=== PATIENT | female | born 1990 | race Caucasian/White ===

== ENCOUNTER 2020-07-23 09:29 | Inpatient (IN) | payer BC ==
[2020-07-23] VITALS (8 sets, daily range): BP systolic 111–133; BP diastolic 58–78
[~2020-07-23] VITALS: Ht 175.3 cm; Wt 91.2 kg
[2020-07-23] MEDS ORDERED: LR 1,000 ML IV SCH (10:11)
[2020-07-23] MEDS ORDERED: LACTATED RINGER'S 1000 ML IV STA (10:11)
[2020-07-23 10:24] LABS: HEMOGLOBIN 12.5 g/dl (12.0-15.5); MEAN CORPUSCULAR HEMOGLOBIN 26.4 pg (27.0-33.0); MEAN CORPUSCULAR HGB CONC 32.1 g/dl (32.0-36.5); MEAN CORPUSCULAR VOLUME 82.5 fl (80.0-96.0); PLATELET COUNT, AUTOMATED 220 10^3/uL (150-450); RED BLOOD COUNT 4.73 10^6/uL (4.00-5.40); WHITE BLOOD COUNT 12.9 10^3/uL (4.0-10.0)
[2020-07-23] MEDS ORDERED: OXYTOCIN 30 UNITS IN 0.9% NaCl 500ML IV BAG (J2590) As Ordered ONE (10:45)
[2020-07-23] MEDS ORDERED: ACETAMINOPHEN 500 MG TAB PO PRN (13:00)
[2020-07-23] MEDS ORDERED: METHYLERGONOVINE MALEATE 0.2 MG TAB PO PRN (13:00)
[2020-07-23] MEDS ORDERED: RHOGAM 300 MCG (1500 IU) INJ (J2790) IM SCH (13:00)
[2020-07-23] MEDS ORDERED: DOCUSATE SODIUM 100MG CAPSULE PO PRN (13:00)
[2020-07-23] MEDS ORDERED: MEASLES,MUMPS,RUBELLA VACCINE INJ (MMR-II) (90707) SQ SCH (13:00)
[2020-07-23] MEDS ORDERED: ANUSOL HC CREAM 30GM TOP PRN (13:00)
[2020-07-23] MEDS ORDERED: MOM 30ML SUSPENSION UDC PO PRN (13:00)
[2020-07-23] MEDS ORDERED: OXYTOCIN DRIP 30 UNITS in IV 1 EA IV ONE (13:05)
[2020-07-23] MEDS ORDERED: IBUPROFEN 800 MG TAB As Ordered ONE (13:21)
[2020-07-23] MEDS: IBUPROFEN 800 MG TAB PO PRN ×2 (13:30→23:41)
[2020-07-23] MEDS ORDERED: IRON27TA2 PO (14:18)
[2020-07-23] MEDS ORDERED: METF500T13 PO (14:18)
[2020-07-23] MEDS ORDERED: PRENTAB9 PO (14:18)
--- NOTE | 2020-07-23 15:00 | HPEPDOC ---
Obstetrical History & Physical General Date of Admission Jul 23, 2020 at 10:00 History of Present Illness Sol is a 30yo with SIUP at 38w0d by 9wk u/s presenting with painful regular ctx. She was receiving care at [facility], but plan was to deliver in [place] because she has a history of prior section and her regular OB does not offer services. She started erin early this morning around 5am and did not think she would make it to [place] before delivering, so came here. No LOF, good movement, no vaginal bleeding. Records received and able to review. Chief Complaint: Contractions, term Information Provided By: Patient Care Care: Good Care Dating Final EDC: Aug 06, 2020 Final EDC by: 1st trimester (US) Antepartum Course Diagnos(e)s History of prior section in 2016 for breech presentation with successful after in 2017, A2GDM on metformin 500mg BID with sugars well controlled, anemia taking iron, patient is CF carrier but is negative Past Medical History Past Obstetrical History : Past Obstetrical History: Multigravida (07/26/2016 PLTCS for breech [id number] at 40wk M, 02/02/2018 [id number] at 39wk at [facility]) EVENT SET UP SPECIALIST History: Spontaneous Past Medical History Medical History benign Surgical History: section, Dilatation and Curettage Family History Significant Family History: No pertinent family hx Social History Marital Status: Family situation: Spouse/partner home Psychosocial History: No pertinent psych hx * Smoker: non-smoker Alcohol: Denies Drugs: denies Imunizations Tdap status: current Influenza Status: current Allergies Coded Allergies: No Known Allergies (Unverified , 07/23/20) Medications Scheduled Ferrous Gluconate (Iron) 236 Mg Tablet, 1 TAB PO DAILY Metformin HCl (Metformin HCl) 500 Mg Tablet, 500 MG PO BID No.137/Iron/Folic Acd ( Vitamin Tablet) 1 Each Tablet, 1 TAB PO DAILY Physical Examination Physical Examination GENERAL: Alert and oriented times three. ABDOMEN: Gravid and non-tender to touch. FETUS: Is vertex (VTX) by sterile vaginal examination (SVE) EXTREMITIES: No edema BLE Vital Signs/I&O Vital Signs Date Time Temp Pulse Resp B/P (MAP) Pulse Ox O2 Delivery O2 Flow Rate FiO2 07/23/20 14:42 99.0 84 12 121/58 (79) 97 Room Air Laboratory Data 24H LABS Laboratory Tests 2 07/23/20 10:19: Nucleated Red Blood Cells % (auto) 0.0 07/23/20 14:22: Serology Scanned Report Hepatitis B Testing CBC/BMP Laboratory Tests 07/23/20 10:19 Pertinent Laboratoy Data Blood Type: AB+ RBC Antibody Screen: Negative HIV: Negative Hepatitis B: Negative Rapid Plasma Reagin: Nonreactive Rubella: Immune Chlamydia/Gonorrhea: Negative Group B Streptococcus: Negative Glucose Tolerance Test: 161 (83/189/165/103) Anatomy Ultrasound Ultrasound Date: Mar 28, 2020 Normal Anatomy: Yes Other Ultrasounds 06/23 vertex, anterior placenta, 45%ile. 07/14 vertex, 22%ile, MICHAEL 14.6cm Steroid Therapy Steroid Therapy: No Vaginal Examination Dilation: 8 cm Effacement: 70% Station: -2 Cervical Consistency: Soft Cervical Position: Anterior Presentation: Cephalic presentation Assessment Heart Rate (FHR): 140 Variability: Moderate Accelerations: Positive Decelerations: Late (occasional, not persistent) Tocometer Contractions: Yes Frequency: regular, every 2-5 min. Duration: greater than 60 seconds Strength: palpated as strong Assessment/Plan Assessment Sol is a 30yo with SIUP at 38w0d by 9wk in active labor with SCE 8/75/-2 and bulging bag with hx of prior section and a prior successful desiring another TOLAC. Cat II FHRT for occasional late decels but mod saray and +accels. Vitals wnl and benign exam. PMhx/ course significant for: History of prior section in 2017 for breech presentation with successful after in 2018, A2GDM on metformin 500mg BID with sugars well controlled, anemia taking iron, patient is CF carrier but is negative Plan Admit and orient. [employer] Guard and consent. Diet: clear liquids Group B Streptococcus (GBS) negative Labs and intravenous (IV) per unit protocol. Lactated Ringers (LR): Bolus 800 mL, then at 125 mL/hr. Anticipate normal spontaneous delivery (), patient strongly desires TOLAC Cait Simon MD Jul 23, 2020 15:00
--- NOTE | 2020-07-23 15:10 | DNPDOC ---
[facility] Delivery Note Delivery Note DATE OF DELIVERY: 07/23/20 PREDELIVERY DIAGNOSIS: 38w0d weeks' gestation and labor. POST DELIVERY DIAGNOSIS: Delivered. PROCEDURE: LOSS PREVENTION ANALYST: Dr. Cait Simon MD ANESTHESIA: 1% lidocaine for repair ESTIMATED BLOOD LOSS: 200 mL. FINDINGS: 6 pound 5 ounce (2870g) male infant, Score 9/9 DELIVERY SUMMARY: Sol is a 30yo [id number] s/p uncomplicated at 1047 on 07/23/20 when she presented in active labor at 38w0d. Plan was for delivery at [place] as her OB provider does not offer services, but she felt labor was too active to make it to [place]. She was 8/75/-2 with bulging bag on arrival. She quickly progressed to C/C/0, at which point I performed AROM with copious clear fluid noted. With a few sets of pushes, infant delivered ROP with compound left arm. Left anterior shoulder quickly delivered followed by posterior shoulder and corpus. Infant vigorous with spontaneous cry, apgars 9/9, placed on maternal abdomen and nose/mouth suctioned with bulb suction. After 2 min, cord clamped x2 and cut by FOB. With uterine massage and traction on the cord, placenta delivered spontaneously and intact with 3 vessel centrally inserted cord. Pitocin IV given per protocol. Inspection of perineum and vagina revealed a 2mll mostly involving the perineum and not much of the interior of the vagina- after anesthetizing with 1% lidocaine, this was repaired in routine fashion with 2-0 vicryl suture with excellent reapproximation and total hemostasis noted. There was a piece of tissue dangling out from the left side of the vagina near the hymenal ring- I asked patient if she noticed it previously and she said it resulted from her prior delivery. I asked her if she would like it removed and she said definitely yes, so I anesthetized with 1% lidocaine under the base and then used scissors to excise the tissue- two stitches placed there for hemostasis. All counts correct x2. Mom and were doing well when I left the room. MD Aurora Elizabeth Katrina D MD Jul 23, 2020 15:10
[2020-07-24] MEDS ORDERED: LIDOCAINE 1% MDV 20ML VIAL INFIL ONE (01:15)
[2020-07-24 06:00] VITALS: BP 100/60
[2020-07-24] MEDS: IBUPROFEN 800 MG TAB PO PRN (08:12)
--- NOTE | 2020-07-24 11:55 | IPNPDOC ---
Progress Note Date of Service: Jul 24, 2020 Day#: 1 Progress Note PPD 1 SUBJECT: Sol is a 30yo [id number] s/p uncomplicated at 1047 on 07/23/20 when she presented in active labor at 38w0d, doing well day # 1. She has been ambulating, voiding spontaneously without issue and tolerating regular diet. Breast feeding without issue. Reports lochia is like a normal period. No f/c/n/v/CP/SOB/lightheadedness or dizziness. OBJECTIVE: VITAL SIGNS: Within normal limits, afebrile. Alert and oriented times three. Abdomen: Fundus firm at U-2. Soft, NTTP. Extremities: no pain with palpation of calves ASSESSMENT: Sol is a 30yo [id number] s/p uncomplicated at 1047 on 07/23/20 when she presented in active labor at 38w0d, doing well day # 1. Vitals within normal limits, afebrile, hemodynamically stable with no evidence of infection. PLAN: 1. Discharge to home today. 2. Tylenol and Motrin for pain. 3. Encourage breast feeding and ambulation. 4. Uncertain of desired contraception, she will address with her OBGYN at 6wk PP visit 5. Routine PP visit in 6 weeks in clinic. 6. Discussed return precautions at length. Cait Simon MD VS, I&O, 24H, Fishbone Vital Signs/I&O Vital Signs Date Time Temp Pulse Resp B/P (MAP) Pulse Ox O2 Delivery O2 Flow Rate FiO2 07/24/20 08:23 18 07/24/20 06:00 97.8 65 100/60 (73) 99 Room Air I&O- Last 24 Hours up to 6 AM 07/24/20 06:00 Output Total 200 ml Balance -200 ml Laboratory Data 24H LABS Laboratory Tests 2 07/23/20 14:22: Serology Scanned Report Hepatitis B Testing Cait Simon MD Jul 24, 2020 11:55
--- NOTE | 2020-07-24 11:58 | DS.PDOC ---
Discharge Summary General Date of Admission Jul 23, 2020 at 10:00 Date of Discharge Jul 24, 2020 Discharge Summary PROCEDURES PERFORMED DURING STAY: vaginal after ADMITTING DIAGNOSES: 1. active labor at term with history of prior 2. A2GDM treated with metformin 3. Anemia on iron DISCHARGE DIAGNOSES: 1. active labor at term with history of prior 2. A2GDM treated with metformin 3. Anemia on iron 4. successful COMPLICATIONS/CHIEF COMPLAINT: Labor. HISTORY OF PRESENT ILLNESS/HOSPITAL COURSE: Sol is a 30yo [id number] s/p uncomplicated at 1047 on 07/23/20 when she presented in active labor at 38w0d, doing well day # 1. She had a benign course and at time of discharge, vitals were within normal limits, afebrile, hemodynamically stable with no evidence of infection. DISCHARGE MEDICATIONS: Please see below. ALLERGIES: Please see below. PHYSICAL EXAMINATION ON DISCHARGE: VITAL SIGNS: Within normal limits, afebrile. Alert and oriented times three. Abdomen: Fundus firm at U-2. Soft, NTTP. Extremities: no pain with palpation of calves LABORATORY DATA: Please see below. ACTIVITY: vaginal rest no heavy lifting 6 weeks DIET: regular DISCHARGE INSTRUCTIONS: 1. Discharge to home today. 2. Tylenol and Motrin for pain. 3. Encourage breast feeding and ambulation. 4. Uncertain of desired contraception, she will address with her OBGYN at 6wk PP visit 5. Routine PP visit in 6 weeks in clinic. 6. Discussed return precautions at length. DISCHARGE CONDITION: Stable TIME SPENT ON DISCHARGE: Greater than 20 minutes. Cait Simon MD Vital Signs/I&Os Vital Signs Date Time Temp Pulse Resp B/P (MAP) Pulse Ox O2 Delivery O2 Flow Rate FiO2 07/24/20 08:23 18 07/24/20 06:00 97.8 65 100/60 (73) 99 Room Air I&O- Last 24 Hours up to 6 AM 07/24/20 06:00 Output Total 200 ml Balance -200 ml Laboratory Data Labs 24H Laboratory Tests 2 07/23/20 14:22: Serology Scanned Report Hepatitis B Testing Discharge Medications Scheduled Ferrous Gluconate (Iron) 236 Mg Tablet, 1 TAB PO DAILY, (Reported) No.137/Iron/Folic Acd ( Vitamin Tablet) 1 Each Tablet, 1 TAB PO DAILY, (Reported) Allergies Coded Allergies: No Known Allergies (Unverified , 07/23/20) Cait Simon MD Jul 24, 2020 11:58
== END 2020-07-24 16:10 | disposition home or self-care (01) | DRG 560 ==
LOC: M LDO 09:29 → M LDI 10:00 → M OBS 14:39
PROVIDERS: ADMIT Obstetrics & Gynecology; ATTEND Obstetrics & Gynecology
PROC: 10E0XZZ Delivery of Products of Conception, External Approach (ICD-10-PCS; principal; 2020-07-23)
PROC: 0KQM0ZZ Repair Perineum Muscle, Open Approach (ICD-10-PCS; 2020-07-23)
PROC: 10907ZC Drainage of Amniotic Fluid, Therapeutic from Products of Conception, Via Natural or Artificial Opening (ICD-10-PCS; 2020-07-23)
PROC: 0UBG7ZZ Excision of Vagina, Via Natural or Artificial Opening (ICD-10-PCS; 2020-07-23)
DX: O34.211 Maternal care for low transverse scar from previous cesarean delivery (principal); O24.425 Gestational diabetes mellitus in childbirth, controlled by oral hypoglycemic drugs; D64.9 Anemia, unspecified; Z3A.38 38 weeks gestation of pregnancy; O99.02 Anemia complicating childbirth; O32.6XX0 Maternal care for compound presentation, not applicable or unspecified; O70.1 Second degree perineal laceration during delivery; Z37.0 Single live birth